=== PATIENT | female | born 2000 | race Two or more races ===

== ENCOUNTER 2020-12-12 15:32 | Inpatient (IN) | payer MEDICAID ==
[2020-12-12] MEDS ORDERED: Sodium Chloride 0.9% 10 ML Syringe FLUSH PRN ×2 (15:42→15:46)
[2020-12-12] MEDS ORDERED: Nalbuphine 10 MG/1 ML Vial IVPUSH PRN (15:42)
[2020-12-12] MEDS ORDERED: Misoprostol 25 MCG (1/4 of 100 MCG) Tab VAG PRN (15:46)
--- NOTE | 2020-12-12 21:24 | PCM.LDHP ---
L&D History of Present Illness - General Date of Service: 12/12/20 Admit Problem/Dx: Patient Status Order with Admit Dx/Problem 12/12/20 15:42 Patient Status [ADT] Routine Admission Diagnosis/Problem Admission Diagnosis/Problem 40 weeks gestation of Source of Information: Patient History Limitations: Reports: No Limitations - History of Present Illness Introduction:: Bre Hartman is a 20-year-old female at 40 weeks 0 days (YOLY 12/12/2020) by LMP consistent with a first trimester ultrasound who presents after being seen in the clinic earlier today. While in the clinic she had a nonreactive NST due to tachycardia with a baseline in the 165s. The remainder of the NST was normal with moderate variability, positive 15 x 15 accelerations and no decelerations. She was having contractions about every 7-8 minutes. She was having good movement. She denied any leaking of fluid or vaginal bleedi ng. Patient was sent to L&D for induction due to the non-reactive NST. Associated Symptoms: Denies: vaginal bleeding, vaginal discharge, vaginal fluid Present Illness Comments:: Bre Hartman is a 20-year-old female at 40 weeks 0 days (YOLY 12/12/2020) by LMP consistent with a first trimester ultrasound who presents for induction of labor in the setting of non-reactive NST in the office today with tachycardia. She has had routine care initially staring in [place] and transferring to care with myself, Dr. Craven, at 31 WGA. She received TdaP vaccine on 09/22/2020. Her was overall uncomplicated. She is rubella equivocal and should be offered MMR vaccine after delivery. 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 : Current labs Blood type: O+ Antibody screen: Negative Rubella status: Equivocal Hepatitis B surface antigen: Negative Hepatis C: Negative RPR: Negative HIV: Negative Gonorrhea: Negative Chlamydia: Negative Two hour glucose tolerance test: Negative on 09/22/2020 GBS status: Negative on 11/16/2020 - Related Data Allergies/Adverse Reactions: Allergies Allergy/AdvReac Type Severity Reaction Status Date / Time No Known Allergies Allergy Verified 12/12/20 15:50 Home Medications: Home Meds Iron,Carbonyl/Ascorbic Acid [Iron 100-Vitamin C Tablet] 1 each PO DAILY 12/12/20 [History] Pnv No.95/Ferrous Fum/Folic AC [ Vitamin Tablet] 1 each PO DAILY 12/12/20 [History] Past Medical History - Past Health History Medical/Surgical History: Denies Medical/Surgical History HEENT History: Reports: Other (See Below) Other HEENT History: glasses and contacts [employer]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: : 1 Para: 0 - Past Surgical History GI Surgical History: Reports: None Female Surgical History: Reports: None Social & Family History - Family History Family Medical History: No Pertinent Family History - Tobacco Use Tobacco Use Status *Q: Never Tobacco User Second Hand Smoke Exposure: No - Tobacco Core Measures Tobacco Use/Smoking Within Last 30 Days: No Smokeless Tobacco Use in Last 30 Days: No - Alcohol Use Alcohol Use History: No - Recreational Drug Use Recreational Drug Use: Yes Drug Use in Last 12 Months: Yes Recreational Drug Type: Reports: Marijuana/Hashish Recreational Drug Use Frequency: Not Used In Over 6 Months - Living Situation & Occupation Living situation: Reports: Single Occupation: Employed H&P Review of Systems - Review of Systems: Review Of Systems: See Below General: Denies: Fever, Chills, Malaise, Weakness, Fatigue HEENT: Reports: Contact Lenses, Glasses. Denies: Headaches, Post Nasal Drip, Sinus Congestion, Sore Throat, Visual Changes Pulmonary: Denies: Shortness of Breath, Wheezing, Cough Cardiovascular: Denies: Chest Pain, Palpitations, Dyspnea on Exertion Gastrointestinal: Denies: Abdominal Pain, Constipation, Diarrhea, Nausea, Vomiti ng Genitourinary: Denies: Dysuria, Frequency, Burning, Pain, Urgency Musculoskeletal: Reports: Back Pain (and hip pain of ) Skin: Denies: Rash, Lesions Psychiatric: Denies: Depression, Anxiety Neurological: Denies: Headache, Numbness, Syncope L&D Exam - Exam Exam: See Below - Vital Signs Vital Signs: Last Vital Signs Temp 36.9 C 12/12/20 15:42 Pulse 98 12/12/20 15:42 Resp 16 12/12/20 15:42 BP 121/88 12/12/20 15:42 Pulse Ox 98 12/12/20 15:42 Weight: 72.575 kg - OB Specific Fundal Height In cm: 40 Contraction Duration (sec): 60-120 Contraction Frequency (min): 4-7 Contraction Intensity: Mild Movement: Active Heart Tones: Present Heart Tones per Min: 150 (positive 15 x 15 accelerations, no de celerations) Heart Rate (FHR) Variability: Moderate (6-25 bmp) Presentation: Vertex Estimated Weight: 7.5-8 lbs by [place] - Mckenzie Score Mckenzie Score Cervix Position: Anterior Mckenzie Score Consistency: Medium Mckenzie Score Effacement: 51-70% (70%) Mckenzie Score Dilation: 1-2 cm Mckenzie Score 's Station: -3 Mckenzie Score Total: 6 - Exam General: Alert, Oriented HEENT: Conjunctiva Clear, EOMI Neck: Supple, Trachea Midline Lungs: Clear to Auscultation, Normal Respiratory Effort Cardiovascular: Regular Rate, Regular Rhythm GI/Abdominal Exam: Soft, Non-Tender, No Distention, Other (Gravid). No: Guarding, Rigid, Rebound Genitourinary: Normal external exam Extremities: Normal Inspection, Non-Tender, No Pedal Edema Skin: Warm, Dry, Intact Psychiatric: Normal Affect, Normal Mood - Patient Data Lab Results Last 24 hrs: Laboratory Results - last 24 hr 12/12/20 12/12/20 12/12/20 Range/Units 15:45 16:08 16:08 WBC 8.15 (3.98-10.04) K/mm3 RBC 4.17 (3.98-5.22) M/mm3 Hgb 11.6 (11.2-15.7) gm/dl Hct 35.7 (34.1-44.9) % MCV 85.6 (79.4-94.8) fl MCH 27.8 (25.6-32.2) pg MCHC 32.5 (32.2-35.5) g/dl RDW Std Deviation 47.7 H (36.4-46.3) fL Plt Count 252 (182-369) K/mm3 MPV 10.7 (9.4-12.3) fl Neut % (Auto) 70.9 (34.0-71.1) % Lymph % (Auto) 19.8 (19.3-51.7) % Lewis % (Auto) 5.4 (4.7-12.5) % Eos % (Auto) 3.3 (0.7-5.8) Baso % (Auto) 0.2 (0.1-1.2) % Neut # (Auto) 5.78 (1.56-6.13) K/mm3 Lymph # (Auto) 1.61 (1.18-3.74) K/mm3 Lewis # (Auto) 0.44 H (0.24-0.36) K/mm3 Eos # (Auto) 0.27 (0.04-0.36) K/mm3 Baso # (Auto) 0.02 (0.01-0.08) K/mm3 Urine Opiates Screen (HNKPXE=185) Ur Buprenorphine Scrn (CUTOFF=10) Ur Oxycodone Screen (ARA5GV=188) Urine Methadone Screen (YFGUUZ=621) Ur Propoxyphene Screen (PVYYPJ=435) Ur Barbiturates Screen (CTGCLI=604) Ur Tricyclics Screen (QTUBLK=493) Ur Phencyclidine Scrn (CUTOFF=25) Ur Amphetamine Screen (NCEFSB=063) U Methamphetamines Scrn (EJTBQQ=196) U Benzodiazepines Scrn (WOSMZA=258) U Cocaine Metab Screen (HLRVXV=710) U Marijuana (THC) Screen (CUTOFF=50) SARS-CoV-2 RNA (ЕЛЕНА) Negative (NEGATIVE) Blood Type O POSITIVE Gel Antibody Screen Negative 12/12/20 Range/Units 16:50 WBC (3.98-10.04) K/mm3 RBC (3.98-5.22) M/mm3 Hgb (11.2-15.7) gm/dl Hct (34.1-44.9) % MCV (79.4-94.8) fl MCH (25.6-32.2) pg MCHC (32.2-35.5) g/dl RDW Std Deviation (36.4-46.3) fL Plt Count (182-369) K/mm3 MPV (9.4-12.3) fl Neut % (Auto) (34.0-71.1) % Lymph % (Auto) (19.3-51.7) % Lewis % (Auto) (4.7-12.5) % Eos % (Auto) (0.7-5.8) Baso % (Auto) (0.1-1.2) % Neut # (Auto) (1.56-6.13) K/mm3 Lymph # (Auto) (1.18-3.74) K/mm3 Lewis # (Auto) (0.24-0.36) K/mm3 Eos # (Auto) (0.04-0.36) K/mm3 Baso # (Auto) (0.01-0.08) K/mm3 Urine Opiates Screen Negative (XOSLYN=147) Ur Buprenorphine Scrn Negative (CUTOFF=10) Ur Oxycodone Screen Negative (UTP7CW=403) Urine Methadone Screen Negative (MALPNP=059) Ur Propoxyphene Screen Negative (DVZULP=548) Ur Barbiturates Screen Negative (SUXRAP=143) Ur Tricyclics Screen Negative (FCRCAP=739) Ur Phencyclidine Scrn Negative (CUTOFF=25) Ur Amphetamine Screen Negative (FJJPDJ=349) U Methamphetamines Scrn Negative (FSFRCB=062) U Benzodiazepines Scrn Negative (MZACTZ=682) U Cocaine Metab Screen Negative (VEYTCC=493) U Marijuana (THC) Screen Negative (CUTOFF=50) SARS-CoV-2 RNA (ЕЛЕНА) (NEGATIVE) Blood Type Gel Antibody Screen Result Diagrams: 12/12/20 16:08 - Problem List (1) 40 weeks gestation of SNOMED Code(s): 34241382 ICD Code: Z3A.40 - 40 WEEKS GESTATION OF Status: Acute Current Visit: Yes (2) Rubella non-immune status, antepartum SNOMED Code(s): 141512419 ICD Code: O99.891 - OTH DISEASES AND CONDITIONS COMPLICATING ; Z28.3 - UNDERIMMUNIZATION STATUS Status: Acute Current Visit: Yes (3) Non-reactive NST (non-stress test) SNOMED Code(s): 540588016, 094238968 ICD Code: O28.8 - OTHER ABNORMAL FINDINGS ON SCREENING OF MOTHER Status: Acute Current Visit: Yes Problem List Initiated/Reviewed/Updated: Yes Orders Last 24hrs: Active Orders 24 hr Category Date Time Status Patient Status [ADT] Routine ADT 12/12/20 15:42 Active Activity as Tolerated [RC] PFP Care 12/12/20 15:42 Active Communication Order [RC] ASDIRECTED Care 12/12/20 15:42 Active Communication Order [RC] ASDIRECTED Care 12/12/20 15:46 Active Communication Order [RC] ASDIRECTED Care 12/12/20 15:46 Active Communication Order [RC] ASDIRECTED Care 12/12/20 15:46 Active Notify Provider Vital Signs [RC] PRN Care 12/12/20 15:44 Active Notify Provider [RC] ASDIRECTED Care 12/12/20 15:46 Active Notify Provider [RC] PFP Care 12/12/20 15:42 Active Notify Provider [RC] PRN Care 12/12/20 15:42 Active Peripheral IV Care [RC] . DIRECTED Care 12/12/20 15:43 Active Pump Management, Intrathecal [RC] ASDIRECTED Care 12/12/20 15:43 Active Vital Signs [RC] PER UNIT ROUTINE Care 12/12/20 15:42 Active Regular Diet [DIET] Diet 12/12/20 Lunch Active HEP C VIRUS AB [REF] Routine Lab 12/12/20 16:08 Received PATIENT RETYPE [BBK] Routine Lab 12/12/20 16:49 Ordered RAPID PLASMA REAGIN,RPR [CHEM] Routine Lab 12/12/20 16:08 Received Lactated Ringers [Ringers, Lactated] 1,000 ml Med 12/12/20 15:45 Active IV ASDIRECTED Nalbuphine [Nubain] Med 12/12/20 15:42 Active 10 mg IVPUSH Q2H PRN Sodium Chloride 0.9% [Saline Flush] Med 12/12/20 15:42 Active 10 ml FLUSH ASDIRECTED PRN miSOPROStoL [Cytotec] Med 12/12/20 15:46 Active 25 mcg VAG Q4H PRN Electronic Heart Tones Ext w TOCO [WOMSER] Oth 12/12/20 15:42 Ordered Routine Electronic Heart Tones Internal [WOMSER] Per Unit Oth 12/12/20 15:42 Ordered Routine Medication Administration Instruction [OM.PC] Oth 12/12/20 16:00 Ordered ASDIRECTED Peripheral IV Insertion Adult [OM.PC] Routine Oth 12/12/20 15:42 Ordered Peripheral IV Insertion Adult [OM.PC] Routine Oth 12/12/20 15:46 Ordered Resuscitation Status Routine Resus Stat 12/12/20 15:42 Ordered Medication Orders Lactated Ringer's (Ringers, Lactated) 1,000 mls @ 100 mls/hr IV ASDIRECTED LUCINA Misoprostol (Misoprostol 25 Mcg (1/4 Of 100 Mcg) Tab) 25 mcg VAG Q4H PRN PRN Reason: cervical ripening Last Admin: 12/12/20 17:02 Dose: 25 mcg Documented by: QAMAR Nalbuphine HCl (Nalbuphine 10 Mg/1 Ml Vial) 10 mg IVPUSH Q2H PRN PRN Reason: Pain Sodium Chloride (Sodium Chloride 0.9% 10 Ml Syringe) 10 ml FLUSH ASDIRECTED PRN PRN Reason: Keep Vein Open Assessment/Plan Comment:: Bre Hartman is a 20-year-old female at 40 weeks 0 days (YOLY 12/12/2020) who is undergoing induction of labor in the setting of non-reactive NST with tachycardia complicated by rubella non-immune status Patient was placed in dorsal lithotomy position with feet in stirrups. A speculum was placed in the vagina and the cervix was visualized. It appeared to be 1 cm dilated. A 16 Citizen [place] pérez catheter was advanced through the cervix using a ring forceps without difficulty. The pérez bulb was filled with 60 mL of sterile saline. Mother and tolerated procedure without difficulty. Cytotec 25 mcg was placed in the vagina after placement of the Pérez catheter. Refer to observation for induction of labor in the setting of non-reactive NST Start induction of labor with Cytotec 25 mcg vaginally now and every 4 hours Continuous monitoring due to tachycardia on NST Place IV and have Lactated Ringer's at 125 ml/hr if not tolerating regular diet May have regular diet while on Cytotec induction Activity as tolerated May have epidural as desired Plans to breast-feed after delivery Anticipate vaginal delivery unless otherwise indicated Javy Craven MD 9:54 PM 12/12/2020
[2020-12-12] MEDS ORDERED: Oxytocin/Lactated Ringers 10 UNIT/1,000 ML BAG IV SCH (21:45)
[2020-12-12] MEDS: Lactated Ringers 1,000 ML IV SCH (22:03)
--- NOTE | 2020-12-12 23:42 | PCM.PNLD ---
Labor Progress Note - VS & Meds Vital Signs: Last Vital Signs Temp 36.9 C 12/12/20 15:42 Pulse 98 12/12/20 15:42 Resp 16 12/12/20 15:42 BP 121/88 12/12/20 15:42 Pulse Ox 98 12/12/20 15:42 Active Medications: Current Medications Lactated Ringer's (Ringers, Lactated) 1,000 mls @ 100 mls/hr IV ASDIRECTED LUCINA Last Admin: 12/12/20 22:03 Dose: 100 mls/hr Documented by: Oxytocin/Lactated Ringer's (Pitocin In Lr 10 Units/1,000 Ml) 10 unit in 1,000 mls @ 12 mls/hr IV TITRATE LUCINA; Protocol Last Titration: 12/12/20 22:34 Dose: 4 munits/min, 24 mls/hr Documented by: Misoprostol (Misoprostol 25 Mcg (1/4 Of 100 Mcg) Tab) 25 mcg VAG Q4H PRN PRN Reason: cervical ripening Last Admin: 12/12/20 17:02 Dose: 25 mcg Documented by: Nalbuphine HCl (Nalbuphine 10 Mg/1 Ml Vial) 10 mg IVPUSH Q2H PRN PRN Reason: Pain Sodium Chloride (Sodium Chloride 0.9% 10 Ml Syringe) 10 ml FLUSH ASDIRECTED PRN PRN Reason: Keep Vein Open - Uterine Contractions Uterine Monitoring Mode: External [place] Contraction Frequency (min): 1-2 Contraction Duration (sec): 45-60 Contraction Intensity: Mild to Moderate Uterine Resting Tone: Soft - Monitoring Monitor Mode: Doppler/Auscultation Heart Rate (FHR) Baseline: 160 Heart Rate (FHR) Variability: Moderate (6-25 bmp) Accelerations: Present, 15x15 Decelerations: None Strip Review: Category II - Vaginal Exam Dilation (cm): 4-5 Effacement (Percent): 70 Station: -3 Cervical Position: Midposition Sterile Vaginal Exam Performed By: Javy Craven Vaginal Exam Comment: Artificial rupture of membranes performed with [place] with return of small amount of clear fluid. Mother and infant tolerated procedure without difficulty. - Labor Progress (Free Text) Labor Progress: Bre Hartman is a 20-year-old G1, P0 at 40 weeks 1 day undergoing induction of labor due to nonreactive NST in the office Artificial rupture membranes performed with return of small amount of clear fl uid. Patient currently on Pitocin for augmentation of labor patient making progress with cervical dilation at 4 to 5 cm at this time continue with induction of labor with Pitocin routine vitals patient may have epidural as desired Category 2 heart rate tracing with baseline of 160s. Monitoring is otherwise looking normal at this time. Continue to monitor closely for any signs of distress. Anticipate vaginal delivery unless otherwise indicated Javy Craven MD 11:42 PM 12/12/2020
[2020-12-13] MEDS: Lactated Ringers 1,000 ML IV SCH ×4 (00:21→08:08)
[2020-12-13] MEDS ORDERED: ePHEDrine 50 MG/ML SDV IVPUSH PRN ×2 (04:14→17:00)
[2020-12-13] MEDS ORDERED: diphenhydrAMINE 50 MG/ML SDV IVPUSH PRN ×3 (04:14→17:00)
[2020-12-13] MEDS: fentaNYL 100 MCG/2 ML SDV EPIDUR PRN ×2 (04:44→12:57)
[2020-12-13] MEDS: Bupivacaine/fentaNYL/NS 100 ML Bag EPIDUR PRN ×2 (04:44→12:56)
--- NOTE | 2020-12-13 05:26 | PCM.PREANE ---
Preanesthetic Assessment - Procedure Proposed Procedure: epidural - Anesthesia/Transfusion/Family Hx Anesthesia History: No Prior Anesthesia Family History of Anesthesia Reaction: No Transfusion History: No Prior Transfusion(s) - Review of Systems General: Fatigue Pulmonary: No Symptoms Cardiovascular: No Symptoms Gastrointestinal: Abdominal Pain (labor) Neurological: No Symptoms Other: Reports: None - Physical Assessment Vital Signs: Last Vital Signs Temp 36.9 C 12/12/20 15:42 Pulse 98 12/12/20 15:42 Resp 16 12/12/20 15:42 BP 121/88 12/12/20 15:42 Pulse Ox 98 12/12/20 15:42 Height: 1.57 m Weight: 72.575 kg ASA Class: 2 Mental Status: Alert & Oriented x3 Airway Class: Mallampati = 2 Dentition: Reports: Normal Dentition Thyro-Mental Finger Breadths: 2 Mouth Opening Finger Breadths: 2 ROM/Head Extension: Full Lungs: Clear to Auscultation, Normal Respiratory Effort Cardiovascular: Regular Rate, Regular Rhythm - Lab Values: Laboratory Last Values WBC 8.15 K/mm3 (3.98-10.04) 12/12/20 16:08 RBC 4.17 M/mm3 (3.98-5.22) 12/12/20 16:08 Hgb 11.6 gm/dl (11.2-15.7) 12/12/20 16:08 Hct 35.7 % (34.1-44.9) 12/12/20 16:08 MCV 85.6 fl (79.4-94.8) 12/12/20 16:08 MCH 27.8 pg (25.6-32.2) 12/12/20 16:08 MCHC 32.5 g/dl (32.2-35.5) 12/12/20 16:08 RDW Std Deviation 47.7 fL (36.4-46.3) H 12/12/20 16:08 Plt Count 252 K/mm3 (182-369) 12/12/20 16:08 MPV 10.7 fl (9.4-12.3) 12/12/20 16:08 Neut % (Auto) 70.9 % (34.0-71.1) 12/12/20 16:08 Lymph % (Auto) 19.8 % (19.3-51.7) 12/12/20 16:08 [place] % (Auto) 5.4 % (4.7-12.5) 12/12/20 16:08 Eos % (Auto) 3.3 (0.7-5.8) 12/12/20 16:08 Baso % (Auto) 0.2 % (0.1-1.2) 12/12/20 16:08 Neut # (Auto) 5.78 K/mm3 (1.56-6.13) 12/12/20 16:08 Lymph # (Auto) 1.61 K/mm3 (1.18-3.74) 12/12/20 16:08 [place] # (Auto) 0.44 K/mm3 (0.24-0.36) H 12/12/20 16:08 Eos # (Auto) 0.27 K/mm3 (0.04-0.36) 12/12/20 16:08 Baso # (Auto) 0.02 K/mm3 (0.01-0.08) 12/12/20 16:08 Urine Opiates Screen Negative (ZIUFWO=665) 12/12/20 16:50 Ur Buprenorphine Scrn Negative (CUTOFF=10) 12/12/20 16:50 Ur Oxycodone Screen Negative (AGF6EB=690) 12/12/20 16:50 Urine Methadone Screen Negative (LCXCIQ=944) 12/12/20 16:50 Ur Propoxyphene Screen Negative (GQCBWT=227) 12/12/20 16:50 Ur Barbiturates Screen Negative (OSCMAF=953) 12/12/20 16:50 Ur Tricyclics Screen Negative (ZFRJRJ=985) 12/12/20 16:50 Ur Phencyclidine Scrn Negative (CUTOFF=25) 12/12/20 16:50 Ur Amphetamine Screen Negative (PARYEG=252) 12/12/20 16:50 U Methamphetamines Scrn Negative (ZGNOWC=254) 12/12/20 16:50 U Benzodiazepines Scrn Negative (LPJTAL=968) 12/12/20 16:50 U Cocaine Metab Screen Negative (THWEIF=524) 12/12/20 16:50 U Marijuana (THC) Screen Negative (CUTOFF=50) 12/12/20 16:50 RPR Non-reactive (NONREACTIVE) 12/12/20 16:08 SARS-CoV-2 RNA (ЕЛЕНА) Negative (NEGATIVE) 12/12/20 15:45 Blood Type O POSITIVE 12/12/20 16:08 Gel Antibody Screen Negative 12/12/20 16:08 - Allergies Allergies/Adverse Reactions: Allergies Allergy/AdvReac Type Severity Reaction Status Date / Time No Known Allergies Allergy Verified 12/12/20 15:50 - Anesthesia Plan Pre-Op Medication Ordered: None - Acknowledgements Anesthesia Type Planned: Epidural Pt an Appropriate Candidate for the Planned Anesthesia: Yes Alternatives and Risks of Anesthesia Discussed w Pt/Guardian: Yes Pt/Guardian Understands and Agrees with Anesthesia Plan: Yes PreAnesthesia Questionnaire - Past Health History Medical/Surgical History: Denies Medical/Surgical History HEENT History: Reports: Other (See Below) Other HEENT History: glasses and contacts 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: Reports: GERD 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: - Past Surgical History GI Surgical History: Reports: None Female Surgical History: Reports: None - SUBSTANCE USE Tobacco Use Status *Q: Never Tobacco User Tobacco Use Within Last Twelve Months: No Second Hand Smoke Exposure: No Recreational Drug Use History: Yes Recreational Drug Type: Reports: Marijuana/Hashish - HOME MEDS Home Medications: Home Meds Iron,Carbonyl/Ascorbic Acid [Iron 100-Vitamin C Tablet] 1 each PO DAILY 12/12/20 [History] Pnv No.95/Ferrous Fum/Folic AC [ Vitamin Tablet] 1 each PO DAILY 12/12/20 [History] - CURRENT (IN HOUSE) MEDS Current Meds: Current Medications Diphenhydramine HCl (Diphenhydramine 50 Mg/Ml Sdv) 25 mg IVPUSH Q6H PRN PRN Reason: pruritis Ephedrine Sulfate (Ephedrine 50 Mg/Ml Sdv) 5 mg IVPUSH ASDIRECTED PRN PRN Reason: Hypotension Fentanyl (Fentanyl 100 Mcg/2 Ml Sdv) 100 mcg EPIDUR Q3H PRN PRN Reason: Pain Last Admin: 12/13/20 04:44 Dose: 100 mcg Documented by: Fentanyl/Bupivacaine HCl (Bupivacaine/Fentanyl/Ns 100 Ml Bag) 100 ml EPIDUR DIRECTED PRN PRN Reason: Pain Last Admin: 12/13/20 04:44 Dose: 100 ml Documented by: Lactated Ringer's (Ringers, Lactated) 1,000 mls @ 100 mls/hr IV ASDIRECTED LUCINA Last Admin: 12/13/20 04:43 Dose: 100 mls/hr Documented by: Oxytocin/Lactated Ringer's (Pitocin In Lr 10 Units/1,000 Ml) 10 unit in 1,000 mls @ 12 mls/hr IV TITRATE LUCINA; Protocol Last Titration: 12/13/20 01:18 Dose: 3 munits/min, 18 mls/hr Documented by: Misoprostol (Misoprostol 25 Mcg (1/4 Of 100 Mcg) Tab) 25 mcg VAG Q4H PRN PRN Reason: cervical ripening Last Admin: 12/12/20 17:02 Dose: 25 mcg Documented by: Nalbuphine HCl (Nalbuphine 10 Mg/1 Ml Vial) 10 mg IVPUSH Q2H PRN PRN Reason: Pain Last Admin: 12/13/20 04:17 Dose: 10 mg Documented by: Sodium Chloride (Sodium Chloride 0.9% 10 Ml Syringe) 10 ml FLUSH ASDIRECTED PRN PRN Reason: Keep Vein Open
--- NOTE | 2020-12-13 07:59 | PCM.PNLD ---
Labor Progress Note - VS & Meds Vital Signs: Last Vital Signs Temp 36.9 C 12/12/20 15:42 Pulse 98 12/12/20 15:42 Resp 16 12/12/20 15:42 BP 121/88 12/12/20 15:42 Pulse Ox 98 12/12/20 15:42 Active Medications: Current Medications Diphenhydramine HCl (Diphenhydramine 50 Mg/Ml Sdv) 25 mg IVPUSH Q6H PRN PRN Reason: pruritis Ephedrine Sulfate (Ephedrine 50 Mg/Ml Sdv) 5 mg IVPUSH ASDIRECTED PRN PRN Reason: Hypotension Fentanyl (Fentanyl 100 Mcg/2 Ml Sdv) 100 mcg EPIDUR Q3H PRN PRN Reason: Pain Last Admin: 12/13/20 04:44 Dose: 100 mcg Documented by: Fentanyl/Bupivacaine HCl (Bupivacaine/Fentanyl/Ns 100 Ml Bag) 100 ml EPIDUR ASDIRECTED PRN PRN Reason: Pain Last Admin: 12/13/20 04:44 Dose: 100 ml Documented by: Lactated Ringer's (Ringers, Lactated) 1,000 mls @ 100 mls/hr IV ASDIRECTED LUCINA Last Admin: 12/13/20 05:41 Dose: 100 mls/hr Documented by: Oxytocin/Lactated Ringer's (Pitocin In Lr 10 Units/1,000 Ml) 10 unit in 1,000 mls @ 12 mls/hr IV TITRATE LUCINA; Protocol Last Titration: 12/13/20 06:30 Dose: 6 munits/min, 36 mls/hr Documented by: Misoprostol (Misoprostol 25 Mcg (1/4 Of 100 Mcg) Tab) 25 mcg VAG Q4H PRN PRN Reason: cervical ripening Last Admin: 12/12/20 17:02 Dose: 25 mcg Documented by: Nalbuphine HCl (Nalbuphine 10 Mg/1 Ml Vial) 10 mg IVPUSH Q2H PRN PRN Reason: Pain Last Admin: 12/13/20 04:17 Dose: 10 mg Documented by: Sodium Chloride (Sodium Chloride 0.9% 10 Ml Syringe) 10 ml FLUSH ASDIRECTED PRN PRN Reason: Keep Vein Open - Uterine Contractions Uterine Monitoring Mode: IUPC Contraction Frequency (min): 1-2 Contraction Duration (sec): 45-60 Contraction Intensity: Mild to Moderate Uterine Resting Tone: Soft - Monitoring Monitor Mode: Doppler/Auscultation Heart Rate (FHR) Baseline: 160 Heart Rate (FHR) Variability: Moderate (6-25 bmp) Accelerations: Present, 15x15 Decelerations: None Strip Review: Category II - Vaginal Exam Dilation (cm): 6 Effacement (Percent): 70 Station: -3 Cervical Position: Midposition Sterile Vaginal Exam Performed By: Javy Craven Vaginal Exam Comment: IUPC placed without difficulty. Cervix unchanged from prior. - Labor Progress (Free Text) Labor Progress: Has been 6 cm since 2 am. No change again this morning. Epidural in place. Will monitor closely now with IUPC. If no progress despite adequate contractions w ould consider .
[2020-12-13] MEDS ORDERED: Oxytocin/Lactated Ringers 20 UNIT/1,000 ML BAG IV SCH (12:30)
--- NOTE | 2020-12-13 13:31 | PCM.PNLD ---
Labor Progress Note - VS & Meds Vital Signs: Last Vital Signs Temp 36.9 C 12/12/20 15:42 Pulse 98 12/12/20 15:42 Resp 16 12/12/20 15:42 BP 121/88 12/12/20 15:42 Pulse Ox 98 12/12/20 15:42 Active Medications: Current Medications Diphenhydramine HCl (Diphenhydramine 50 Mg/Ml Sdv) 25 mg IVPUSH Q6H PRN PRN Reason: pruritis Ephedrine Sulfate (Ephedrine 50 Mg/Ml Sdv) 5 mg IVPUSH ASDIRECTED PRN PRN Reason: Hypotension Fentanyl (Fentanyl 100 Mcg/2 Ml Sdv) 100 mcg EPIDUR Q3H PRN PRN Reason: Pain Last Admin: 12/13/20 12:57 Dose: 100 mcg Documented by: Fentanyl/Bupivacaine HCl (Bupivacaine/Fentanyl/Ns 100 Ml Bag) 100 ml EPIDUR ASDIRECTED PRN PRN Reason: Pain Last Admin: 12/13/20 12:56 Dose: 100 ml Documented by: Lactated Ringer's (Ringers, Lactated) 1,000 mls @ 100 mls/hr IV ASDIRECTED LUCINA Last Admin: 12/13/20 08:08 Dose: 100 mls/hr Documented by: Oxytocin/Lactated Ringer's (Pitocin In Lr 10 Units/1,000 Ml) 10 unit in 1,000 mls @ 12 mls/hr IV TITRATE LUCINA; Protocol Last Titration: 12/13/20 11:01 Dose: 20 munits/min, 120 mls/hr Documented by: Oxytocin/Lactated Ringer's (Pitocin In Lr 20 Units/1,000 Ml) 20 unit in 1,000 mls @ 60 mls/hr IV TITRATE LUCINA; Protocol Misoprostol (Misoprostol 25 Mcg (1/4 Of 100 Mcg) Tab) 25 mcg VAG Q4H PRN PRN Reason: cervical ripening Last Admin: 12/12/20 17:02 Dose: 25 mcg Documented by: Nalbuphine HCl (Nalbuphine 10 Mg/1 Ml Vial) 10 mg IVPUSH Q2H PRN PRN Reason: Pain Last Admin: 12/13/20 04:17 Dose: 10 mg Documented by: Sodium Chloride (Sodium Chloride 0.9% 10 Ml Syringe) 10 ml FLUSH ASDIRECTED PRN PRN Reason: Keep Vein Open - Uterine Contractions Uterine Monitoring Mode: IUPC Contraction Frequency (min): 1-2 Contraction Duration (sec): 45-60 Contraction Intensity: Mild to Moderate Uterine Resting Tone: Soft - Monitoring Monitor Mode: Doppler/Auscultation Heart Rate (FHR) Baseline: 160 Heart Rate (FHR) Variability: Moderate (6-25 bmp) Accelerations: Present, 15x15 Decelerations: None Strip Review: Category II - Vaginal Exam Dilation (cm): 7.5 Effacement (Percent): 80 Station: -3 Cervical Position: Midposition Sterile Vaginal Exam Performed By: Farida Klein Vaginal Exam Comment: IUPC placed without difficulty. Cervix unchanged from prior. - Labor Progress (Free Text) Labor Progress: Term induction. IUPC placed. Progressing slowly. If unchanged at next check again consider section.
[2020-12-13] MEDS ORDERED: Azithromycin 500 MG in Sodium Chloride 0.9% 250 ML IV ONE (14:02)
[2020-12-13] MEDS ORDERED: Sodium Chloride 0.9% 10 ML Syringe FLUSH PRN (14:10)
[2020-12-13] MEDS ORDERED: Metoclopramide 10 MG/2 ML SDV IVPUSH ONE (14:10)
[2020-12-13] MEDS ORDERED: ceFAZolin 2 GM in Premix Bag 1 BAG IV ONE (14:10)
[2020-12-13] MEDS ORDERED: Citric Acid/Sodium Citrate Solution 30 ML Cup PO ONE (14:10)
[2020-12-13] MEDS ORDERED: Lactated Ringers 1,000 ML IV SCH (14:15)
[2020-12-13] MEDS ORDERED: Metoclopramide 10 MG/2 ML SDV ONE (14:19)
[2020-12-13] MEDS ORDERED: Citric Acid/Sodium Citrate Solution 30 ML Cup ONE (14:19)
[2020-12-13] MEDS ORDERED: Bupivacaine 0.5% 30 ML SDV ONE (14:41)
[2020-12-13] MEDS ORDERED: Methylergonovine 0.2 MG/1 ML Amp ONE (14:52)
[2020-12-13] MEDS ORDERED: Carboprost Tromethamine 250 MCG/1 ML Amp ONE (14:52)
[2020-12-13] MEDS ORDERED: Midazolam 1 MG/ML 2 ML SDV ONE (14:59)
[2020-12-13] MEDS ORDERED: Misoprostol 200 MCG Tab ONE (15:00)
[2020-12-13] MEDS ORDERED: ceFAZolin 1 GM Vial ONE ×2 (15:06→15:12)
[2020-12-13] MEDS ORDERED: Oxytocin 10 Units/1 ML SDV ONE (15:12)
[2020-12-13] MEDS ORDERED: Lactated Ringers 2,000 ML ONE (15:12)
[2020-12-13] MEDS ORDERED: fentaNYL 100 MCG/2 ML SDV ONE (15:12)
[2020-12-13] MEDS ORDERED: Morphine PF 10 MG/10 ML SDV ONE (15:12)
[2020-12-13] MEDS ORDERED: Ondansetron 4 MG/2 ML SDV ONE (15:12)
[2020-12-13] MEDS ORDERED: Sodium Bicarbonate 8.4% 50 MEQ/50 ML SDV ONE (15:12)
[2020-12-13] MEDS ORDERED: Lidocaine 2% with EPINEPHrine 1:200,000 20 ML SDV ONE (15:12)
[2020-12-13] MEDS ORDERED: Lactated Ringers 1,000 ML ONE (15:18)
[2020-12-13] MEDS ORDERED: fentaNYL 100 MCG/2 ML SDV IVPUSH PRN (16:06)
[2020-12-13] MEDS ORDERED: Ondansetron 4 MG/2 ML SDV IVPUSH PRN (16:06)
[2020-12-13] MEDS ORDERED: Meperidine 50 MG/ML Vial IVPUSH ONE (16:07)
--- NOTE | 2020-12-13 16:10 | PCM.POSTAN ---
POST ANESTHESIA ASSESSMENT - MENTAL STATUS Mental Status: Alert, Oriented - VITAL SIGNS Vital Signs: Last Vital Signs Temp 36.9 C 12/12/20 15:42 Pulse 98 12/12/20 15:42 Resp 16 12/12/20 15:42 BP 121/88 12/12/20 15:42 Pulse Ox 98 12/12/20 15:42 1528 138/74 121 18 99% 98.9F - RESPIRATORY Respiratory Status: Respiratory Rate WNL, Airway Patent, O2 Saturation Stable - CARDIOVASCULAR CV Status: Blood Pressure Stable, Elevated Pulse Rate - GASTROINTESTINAL GI Status: No Symptoms - PAIN Pain Score: 0 - POST OP HYDRATION Hydration Status: Hypovolemic (IV LR 1,000 bolus infusing. )
--- NOTE | 2020-12-13 16:12 | PCM.OPNOTE ---
- General Post-Op/Procedure Note Date of Surgery/Procedure: 12/13/20 Operative Procedure(s): primary section Findings: very prominent sacrum, viable male, 9#9oz, 1/7 APGARS at 1444. Pre Op Diagnosis: failure to progress Post-Op Diagnosis: Same Anesthesia Technique: Epidural Primary Surgeon: Farida Klein Anesthesia Provider: Jacquie Armas Skip Miner Blasting: Yolette Olivarez Fluid Replacement, Intraop: 2,000 Output, Urine Amount: 200 EBL in mLs: 1,200 Complications: None Condition: Good Free Text/Narrative:: The patient was taken to the operating room where epidural anesthesia was dosed to surgical levels without difficulty. The patient was prepped and draped in the usual sterile fashion in the dorsal supine position with a leftward tilt. A Pfannenstiel skin incision was made with the scalpel and carried through to the underlying layer of fascia. The fascia was incised in the midline and extended laterally using Maldonado scissors. Kiah clamps were used to elevate the superior aspect of the fascial incision, which was elevated, and the underlying rectus muscles were dissected off bluntly and using Maldonado scissors. Attention was then turned to the inferior aspect of the fascial incision, which in similar fashion was grasped with Kiah clamps, elevated, and the underlying rectus muscles were dissected off bluntly and using the maldonado. The rectus muscles were dissected in the midline. The peritoneum was entered bluntly; this incision was extended superiorly and inferiorly with good visualization of the bladder. The bladder blade was inserted. The vesicouterine peritoneum was identified and entered sharply using Metzenbaum scissors. This incision was extended laterally and the bladder flap was created digitally. The bladder blade was reinserted. The lower uterine segment was incised in a transverse fashion using the scalpel and with digital traction. Clear fluid was noted. The was subsequently delivered by flexing the head to the incision. Body and shoulders followed without difficulty. The cord was clamped and cut. The was subsequently handed to the awaiting keyseating machine set up operator whose presence had been requested.. The placenta was delivered spontaneously intact with a three-vessel cord noted. The uterus was exteriorized and cleared of all clots and debris. It was very boggy. The uterine incision was repaired in 2 layers using 0 monocryl. Hemostasis was visualized. Hemostasis was visualized bilaterally. Significant boggy uterus. Methergine given at 1453, cytotec at 1556, hemabate at 1559, and TXA 1600. The uterus was returned to the abdomen. Attempt to place bakri from below by Dr. Olivarez unsuccessful related to very narrow pelvic arch. The uterine incision was reexamined and it was noted to be hemostatic. The pelvis was copiously irrigated. The fascia was closed with 1 PDS suture, and the skin was closed with 3-0 monocryl. Sponge, lap, and instrument counts were correct x2. The patient was stable at the completion of the proce dure and was subsequently transferred to the recovery room in stable condition.
[2020-12-13] MEDS ORDERED: Tranexamic Acid 1,000 MG in Sodium Chloride 0.9% 100 ML IV ONE (16:15)
[2020-12-13] MEDS ORDERED: Naloxone 0.4 MG/ML SDV IVPUSH PRN (17:00)
[2020-12-13] MEDS ORDERED: diphenhydrAMINE 50 MG/ML SDV IV ONE (17:00)
[2020-12-13] MEDS ORDERED: Sodium Chloride 0.9% 1,000 ML IV SCH (17:00)
[2020-12-13] MEDS ORDERED: Dextrose 5%-Lactated Ringers 1,000 ML IV SCH (17:00)
[2020-12-13] MEDS ORDERED: Bupivacaine 0.25% 10 ML SDV ONE (18:00)
[2020-12-13] MEDS ORDERED: Lidocaine 1.5% with EPINEPHrine 1:200,000 5 ML Amp ONE (18:00)
[2020-12-13] MEDS ORDERED: Sodium Chloride 0.9% 250 ML IV SCH (18:15)
--- NOTE | 2020-12-14 07:43 | PCM48HPAN ---
Post Anesthesia Note - EVALUATION WITHIN 48HRS OF ANESTHETIC Vital Signs in Normal Range: Yes Patient Participated in Evaluation: Yes Respiratory Function Stable: Yes Airway Patent: Yes Cardiovascular Function Stable: Yes Hydration Status Stable: Yes Pain Control Satisfactory: Yes Nausea and Vomiting Control Satisfactory: Yes Mental Status Recovered: Yes Vital Signs: Last Vital Signs Temp 98.5 F 12/14/20 00:45 Pulse 81 12/14/20 02:15 Resp 17 12/14/20 02:15 BP 105/63 12/14/20 02:15 Pulse Ox 95 12/14/20 06:38 - COMMENTS/OBSERVATIONS Free Text/Narrative:: states she is just a little sore.
[2020-12-14] MEDS: Ibuprofen 600 MG Tab PO PRN (08:28)
--- NOTE | 2020-12-14 09:59 | PCM.SN.2 ---
- Free Text/Narrative Note: note: Postoperative day #1 Patient is doing well in the /postop period. Minimal lochia, voiding well, ambulated without problems. Pain is under reasonable control. She has had some ibuprofen for pain. Patient is afebrile, vital signs are stable Lungs are clear with good breath sounds in all lung [place]. Cardiovascular exam shows regular rate and rhythm without murmurs. Abdomen is flat, soft, uterus is below the umbilicus and is firm and nontender. It appears dry. Dressing is removed, Steri-Strips intact. Incision is left open to the air and covered with just a clean washcloth. Legs are nontender. No significant swelling is noted Hemoglobin on postoperative day #1 is 10.3 and platelets are 155,000 Assessment: 1. Post operative/ recovery going well. History of significant bleeding due to uterine atony at the time of delivery. done for failure to progress with nonprogression past 6-7 cm dilation. Plan: 1. Routine postoperative/ care. Patient be discharged home within the next 24-48 hours. Should be able to transfer patient out of the ICU status when bed is available.
[2020-12-14] MEDS: Prenatal Multivitamin with Calcium/Folic Acid/Iron Tab PO SCH (12:38)
[2020-12-14] MEDS ORDERED: Acetaminophen/oxyCODONE 325-5 MG Tab PO PRN (15:58)
[2020-12-14] MEDS: Acetaminophen/oxyCODONE 325-5 MG Tab PO PRN ×2 (16:08→23:13)
[2020-12-14] MEDS: Docusate Sodium 100 MG Cap PO PRN (23:13)
[2020-12-15] MEDS: Acetaminophen/oxyCODONE 325-5 MG Tab PO PRN ×3 (06:39→19:56)
[2020-12-15] MEDS: Docusate Sodium 100 MG Cap PO PRN ×2 (08:02→19:53)
[2020-12-15] MEDS: Ibuprofen 600 MG Tab PO PRN ×2 (08:02→19:53)
[2020-12-15] MEDS: Prenatal Multivitamin with Calcium/Folic Acid/Iron Tab PO SCH (08:02)
--- NOTE | 2020-12-15 12:03 | PCM.SN.2 ---
- Free Text/Narrative Note: Post Operative Progress Note POD #2 Subjective: Doing well overall. Ambulating without difficulty. Lochia minimal. Voiding without difficulty. Passing flatus. Tolerating regular diet without nausea or vomiting. Pain controlled with oral medications. Breast and bottlefeeding with some difficulty with breast-feeding. Mostly bottlefeeding at this time. Objective: Vitals: Vital Signs - 24 hr 12/14/20 12/14/20 12/15/20 16:06 19:48 02:55 Temperature 36.7 C 36.6 C 36.6 C Pulse, 88 91 105 H Peripheral Respiratory 18 15 Rate Blood Pressure 127/82 118/81 115/63 O2 Sat by Pulse 97 95 Oximetry 12/15/20 08:01 Temperature 36.6 C Pulse, 85 Peripheral Respiratory 14 Rate Blood Pressure 127/87 O2 Sat by Pulse 94 L Oximetry Physical Exam General: Alert and oriented, no acute distress Lungs: Clear to auscultation bilaterally Heart: Regular rate and rhythm Abdomen: Soft, minimal appropriate tenderness, non-distended, fundus midline, nontender and at the umbilicus Incision: Clean, dry and intact, no erythema, bleeding or drainage with Steri- Strips in place Extremities: Trace edema in bilateral lower extremities to mid shins, no calf tenderness bilaterally Labs: Laboratory Results - last 24 hr 12/12/20 Range/Units 16:08 Hepatitis C Antibody <0.1 (0.0-0.9) s/co ratio ASSESSMENT: 20-year-old female -0-0-1 s/p primary section POD #2 for arrest of dilation at 6 to 7 cm, complicated by ICU admission in postoperative state for first day after section due to hypotensive episodes with tachycardia and received 2 units PRBCs blood transfusion and rubella nonimmune status and should be offered MMR vaccine prior to discharge PLAN: Doing well Breast and bottlefeeding with some difficulty. Assist as needed Incision healing well. Continue to keep clean and dry. Lochia minimal. Continue to monitor for appropriate lochia. Continue routine post-operative care Plan for MMR vaccine prior to discharge Anticipate discharge home tomorrow as was moved out of level 2 nursery this morning and will be continue to monitored Javy Craven MD 12:02 PM 12/15/2020
[2020-12-16] MEDS: Ibuprofen 600 MG Tab PO PRN (03:55)
[2020-12-16] MEDS: Acetaminophen/oxyCODONE 325-5 MG Tab PO PRN (03:58)
--- NOTE | 2020-12-16 08:46 | PCM.SN.2 ---
- Free Text/Narrative Note: Post Operative Progress Note POD #3 Subjective: Doing well overall. Ambulating without difficulty. Lochia minimal. Voiding without difficulty. Passing flatus and has not had a bowel movement yet. Tolerating regular diet without nausea or vomiting. Pain improving and able to be well controlled with oral medications. Breast and bottlefeeding with minimal difficulty. Objective: Vitals: Vital Signs - 24 hr 12/15/12/15/20 12/16/20 15:20 19:59 04:10 Temperature 36.6 C 36.6 C 36.6 C Pulse, 64 97 62 Peripheral Respiratory 15 16 Rate Blood Pressure 111/78 124/82 111/78 O2 Sat by Pulse 98 98 99 Oximetry Physical Exam General: Alert and oriented, no acute distress Lungs: Clear to auscultation bilaterally Heart: Regular rate and rhythm Abdomen: Soft, minimal appropriate tenderness, non-distended, fundus midline, nontender and at the umbilicus Incision: Clean, dry and intact, no erythema, bleeding or drainage with Steri- Strips in place Extremities: Trace edema in bilateral lower extremities to mid shins, no calf tenderness bilaterally ASSESSMENT: 20-year-old female -0-0-1 s/p primary section POD #3 for arrest of dilation at 6 to 7 cm, complicated by ICU admission in postoperative state for first day after section due to hypotensive episodes with tachycardia and received 2 units PRBCs blood transfusion and rubella nonimmune status and should be offered MMR vaccine prior to discharge PLAN: Doing well Breast and bottlefeeding with some difficulty. Assist as needed Incision healing well. Continue to keep clean and dry. Lochia minimal. Continue to monitor for appropriate lochia. Continue routine post-operative care Plan for MMR vaccine to be offered prior to discharge Discharge home today Javy Craven MD 8:44 AM 12/16/2020
--- NOTE | 2020-12-16 09:05 | PCM.DCSUM1 ---
Discharge Summary - Hospital Course Free Text/Narrative:: - General Post-Op/Procedure Note Date of Surgery/Procedure: 12/13/20 Operative Procedure(s): primary section Findings: very prominent sacrum, viable male, 9#9oz, 1/7 APGARS at 1444. Pre Op Diagnosis: failure to progress Post-Op Diagnosis: Same Anesthesia Technique: Epidural Primary Surgeon: Farida Klein Anesthesia Provider: Jacquie Armas Liner Worker: Yolette Olivarez Fluid Replacement, Intraop: 2,000 Output, Urine Amount: 200 EBL in mLs: 1,200 Complications: None Condition: Good Free Text/Narrative:: The patient was taken to the operating room where epidural anesthesia was dosed to surgical levels without difficulty. The patient was prepped and draped in the usual sterile fashion in the dorsal supine position with a leftward tilt. A Pfannenstiel skin incision was made with the scalpel and carried through to the underlying layer of fascia. The fascia was incised in the midline and extended laterally using Maldonado scissors. Kiah clamps were used to elevate the superior aspect of the fascial incision, which was elevated, and the underlying rectus muscles were dissected off bluntly and using Maldonado scissors. Attention was then turned to the inferior aspect of the fascial incision, which in similar fashion was grasped with Kiah clamps, elevated, and the underlying rectus muscles were dissected off bluntly and using the maldonado. The rectus muscles were dissected in the midline. The peritoneum was entered bluntly; this incision was extended superiorly and inferiorly with good visualization of the bladder. The bladder blade was inserted. The vesicouterine peritoneum was identified and entered sharply using Metzenbaum scissors. This incision was extended laterally and the bladder flap was created digitally. The bladder blade was reinserted. The lower uterine segment was incised in a transverse fashion using the scalpel and with digital traction. Clear fluid was noted. The was subsequently delivered by flexing the head to the incision. Body and shoulders followed without difficulty. The cord was clamped and cut. The infant was subsequently handed to the awaiting sap fico architect whose presence had been requested.. The placenta was delivered spontaneously intact with a three-vessel cord noted. The uterus was exteriorized and cleared of all clots and debris. It was very boggy. The uterine incision was repaired in 2 layers using 0 monocryl. Hemostasis was visualized. Hemostasis was visualized bilaterally. Significant boggy uterus. Methergine given at 1453, cytotec at 1556, hemabate at 1559, and TXA 1600. The uterus was returned to the abdomen. Attempt to place bakri from below by Dr. Olivarez unsuccessful related to very narrow pelvic arch. The uterine incision was reexamined and it was noted to be hemostatic. The pelvis was copiously irrigated. The fascia was closed with 1 PDS suture, and the skin was closed with 3-0 monocryl. Sponge, lap, and instrument counts were correct x2. The patient was stable at the completion of the procedure and was subsequently transferred to the recovery room in [facility]. Diagnosis: Stroke: No - Discharge Data Discharge Date: 12/16/20 Discharge Disposition: Home, Self-Care 01 Condition: Good - Referral to Home Health Primary Care Physician: PCP None - Discharge Diagnosis/Problem(s) (1) 40 weeks gestation of SNOMED Code(s): 37291196 ICD Code: Z3A.40 - 40 WEEKS GESTATION OF Status: Acute Current Visit: Yes (2) Rubella non-immune status, antepartum SNOMED Code(s): 195482068 ICD Code: O99.891 - OTH DISEASES AND CONDITIONS COMPLICATING ; Z28.3 - UNDERIMMUNIZATION STATUS Status: Acute Current Visit: Yes (3) Non-reactive NST (non-stress test) SNOMED Code(s): 649492581, 419925349 ICD Code: O28.8 - OTHER ABNORMAL FINDINGS ON SCREENING OF MOTHER Status: Acute Current Visit: Yes - Patient Summary/Data Operative Procedure(s) Performed: primary section Complications: Maternal hypotension and tachycardia in the PACU. Patient given 2 units PRBC blood transfusion due to suspected symptoms due to acute blood loss anemia and hemorrhage during section. Consults: environmental services assistant Hospital Course: Bre Hartman was admitted for induction of labor in the setting of nonreactive NST with tachycardia. On admission her cervix was dilated to 1-2 cm. She was GBS negative.she had placement of an 18 [place] Prescott catheter with direct visualization and use of ring forceps. She was given Cytotec 25 mcg vaginally for induction. The Prescott bulb came out spontaneously after being in place for approximately 5 hours and she was given pitocin for augmentation. She underwent artificial rupture membranes with return of small amount of clear fluid. In the sales service route manager of HD #2 she had larger amount of fluid that came out after suspected spontaneous rupture membranes with clear fluid. She was given an epidural for anesthesia. She had an IUPC placed to monitor her contractions more closely in the morning of HD #2. She made minimal progress and had arrest of dilation at 6 to 7 cm and was recommended for her to have section for arrest of dilation. Consents were signed. She was taken back to the OR and given additional dosing through her epidural for anesthesia. She was given Ancef and azithromycin IV for antibiotic prophylaxis. She was prepped and draped in the normal fashion. On 12/13/2020 she had a normal delivery of a [live] male infant at 14:44. Apgars of 1 and 7. Weight of 4350 g (9 pounds 9.4 ounces). She was closed in a normal fashion. During the procedure the uterus was noted to be very boggy and she was given Methergine, Cytotec, Hemabate and tranexamic acid to help with bleeding. Attempt was made to place a Bakri balloon but this was unsuccessful. Please see the operative report for full details. Her post operative course was complicated by maternal hypotension and tachycardia in the PACU. She was transferred to the ICU in overall stable state and was given 2 units PRBC blood transfusion due to suspected acute blood loss anemia leading to her symptoms.on POD #1 she was transferred from the ICU to the unit. Her pain was well controlled and she had minimal lochia. She was ambulating, tolerating a regular diet and voiding normally. She was passing flatus and has not had a bowel movement. She was breast and bottle feeding without difficulty. She was afebrile and her hematocrit was 31.1 on POD #1 status post 2 units PRBCs blood transfusion. She desired to be discharged home on the morning of POD #3. Her blood type is O+. Patient was offered MMR vaccine prior to discharge. Patient was seen by social service technician and given additional information for support after discharge. - Patient Instructions Diet: Regular Diet as Tolerated Activity: Apply Ice, As Tolerated, No Lifting Over 20 Pounds Activity, Other: Nothing in the vagina for 6 weeks Driving: Do Not Drive (While taking narcotic medications are having significant pain.) Showering/Bathing: May Shower Wound/Incision Care: Keep Operative Site/Wound Site Clean and Dry Notify Provider of: Fever, Increased Pain, Swelling and Redness, Drainage, Nausea and/or Vomiting Other/Special Instructions: Please contact your physician's office if you note any bleeding or pus coming from the abdominal incision. Please contact your physician's office if you have heavy vaginal bleeding enough to soak a pad in less than an hour for several hours. Monitor for any signs of an infection in the breasts with severe pain or redness of the breast. - Discharge Plan *PRESCRIPTION DRUG MONITORING PROGRAM REVIEWED*: Yes *COPY OF PRESCRIPTION DRUG MONITORING REPORT IN PATIENT RENETTA: No Prescriptions/Med Rec: Acetaminophen/oxyCODONE [Percocet 325-5 MG] 1 - 2 tab PO Q6H PRN #30 tablet PRN Reason: Pain Home Medications: Home Meds Pnv No.95/Ferrous Fum/Folic AC [ Vitamin Tablet] 1 each PO DAILY 12/12/20 [History] Acetaminophen/oxyCODONE [Percocet 325-5 MG] 1 - 2 tab PO Q6H PRN #30 tablet 12/16/20 [Rx] Docusate Sodium [Colace] 100 mg PO BID PRN cap 12/16/20 [Rx] Ibuprofen [Motrin] 600 mg PO Q6H PRN tablet 12/16/20 [Rx] Patient Handouts: Delivery, Care After Referrals: Javy Craven MD [Physician] - (Follow-up in 2 weeks for routine postoperative visit or earlier as needed.) - Discharge Summary/Plan Comment DC Time >30 min.: No - Patient Data Vitals - Most Recent: Last Vital Signs Temp 36.6 C 12/16/20 04:10 Pulse 62 12/16/20 04:10 Resp 16 12/16/20 04:10 BP 111/78 12/16/20 04:10 Pulse Ox 99 12/16/20 04:10 Weight - Most Recent: 72.575 kg Med Orders - Current: Current Medications Diphenhydramine HCl (Diphenhydramine 50 Mg/Ml Sdv) 25 mg IVPUSH Q6H PRN PRN Reason: Itching or Nausea Docusate Sodium (Docusate Sodium 100 Mg Cap) 100 mg PO BID PRN PRN Reason: Constipation Last Admin: 12/15/20 19:53 Dose: 100 mg Documented by: Ephedrine Sulfate (Ephedrine 50 Mg/Ml Sdv) 5 mg IVPUSH SEECOMMENT PRN PRN Reason: Other Ibuprofen (Ibuprofen 600 Mg Tab) 600 mg PO Q4H PRN PRN Reason: Pain Last Admin: 12/16/20 03:55 Dose: 600 mg Documented by: Naloxone HCl (Naloxone 0.4 Mg/Ml Sdv) 0.1 mg IVPUSH SEECOMMENT PRN PRN Reason: Respiratory Depression Oxycodone/Acetaminophen (Acetaminophen/Oxycodone 325-5 Mg Tab) 2 tab PO Q4H PRN PRN Reason: Pain (severe 7-10) Last Admin: 12/16/20 03:58 Dose: 2 tab Documented by: Oxycodone/Acetaminophen (Acetaminophen/Oxycodone 325-5 Mg Tab) 1 tab PO Q4H PRN PRN Reason: Pain (moderate 4-6) Prenat Multivit/Bandera/Iron/Folic Ac ( Multivitamin With Calcium/Folic Acid/Iron Tab) 1 each PO DAILY LUCINA Last Admin: 12/15/20 08:02 Dose: 1 each Documented by: Discontinued Medications Bupivacaine HCl (Bupivacaine 0.5% 30 Ml Sdv) Confirm Administered Dose 30 ml .ROUTE .STK-MED ONE Stop: 12/13/20 14:42 Last Admin: 12/13/20 14:39 Dose: 30 ml Documented by: Bupivacaine HCl (Bupivacaine 0.25% 10 Ml Sdv) 20 ml .ROUTE .STK-MED ONE Stop: 12/13/20 18:01 Carboprost Tromethamine (Carboprost Tromethamine 250 Mcg/1 Ml Amp) Confirm Administered Dose 250 mcg .ROUTE .STK-MED ONE Stop: 12/13/20 14:53 Last Admin: 12/13/20 14:59 Dose: 250 mcg Documented by: Cefazolin Sodium (Cefazolin 1 Gm Vial) Confirm Administered Dose 2 gm .ROUTE .STK-MED ONE Stop: 12/13/20 15:07 Cefazolin Sodium (Cefazolin 1 Gm Vial) Confirm Administered Dose 2 gm .ROUTE .STK-MED ONE Stop: 12/13/20 15:13 Citric Acid/Sodium Citrate (Citric Acid/Sodium Citrate Solution 30 Ml Cup) 30 ml PO ONETIME ONE Stop: 12/13/20 14:11 Last Admin: 12/13/20 14:22 Dose: 30 ml Documented by: Citric Acid/Sodium Citrate (Citric Acid/Sodium Citrate Solution 30 Ml Cup) Confirm Administered Dose 30 ml .ROUTE .Cruise Compare ONE Stop: 12/13/20 14:20 Last Admin: 12/14/20 08:32 Dose: Not Given Documented by: Diphenhydramine HCl (Diphenhydramine 50 Mg/Ml Sdv) 25 mg IVPUSH Q6H PRN PRN Reason: pruritis Diphenhydramine HCl (Diphenhydramine 50 Mg/Ml Sdv) 25 mg IVPUSH Q6H PRN PRN Reason: Pruritis Diphenhydramine HCl (Diphenhydramine 50 Mg/Ml Sdv) 25 mg IV ONETIME ONE Stop: 12/13/20 17:01 Last Admin: 12/13/20 17:59 Dose: 25 mg Documented by: Ephedrine Sulfate (Ephedrine 50 Mg/Ml Sdv) 5 mg IVPUSH ASDIRECTED PRN PRN Reason: Hypotension Fentanyl (Fentanyl 100 Mcg/2 Ml Sdv) 100 mcg EPIDUR Q3H PRN PRN Reason: Pain Last Admin: 12/13/20 12:57 Dose: 100 mcg Documented by: Fentanyl (Fentanyl 100 Mcg/2 Ml Sdv) Confirm Administered Dose 100 mcg .ROUTE .Cruise Compare ONE Stop: 12/13/20 15:13 Fentanyl (Fentanyl 100 Mcg/2 Ml Sdv) 50 mcg IVPUSH Q5M PRN PRN Reason: Pain Fentanyl/Bupivacaine HCl (Bupivacaine/Fentanyl/Ns 100 Ml Bag) 100 ml EPIDUR ASDIRECTED PRN PRN Reason: Pain Last Admin: 12/13/20 12:56 Dose: 100 ml Documented by: Lactated Ringer's (Ringers, Lactated) 1,000 mls @ 100 mls/hr IV ASDIRECTED LUCINA Last Admin: 12/13/20 08:08 Dose: 100 mls/hr Documented by: Oxytocin/Lactated Ringer's (Pitocin In Lr 10 Units/1,000 Ml) 10 unit in 1,000 mls @ 12 mls/hr IV TITRATE LUCINA; Protocol Last Titration: 12/13/20 11:01 Dose: 20 munits/min, 120 mls/hr Documented by: Oxytocin/Lactated Ringer's (Pitocin In Lr 20 Units/1,000 Ml) 20 unit in 1,000 mls @ 60 mls/hr IV TITRATE LUCINA; Protocol Azithromycin 500 mg/ Sodium (Chloride) 250 mls @ 250 mls/hr IV ONETIME ONE Stop: 12/13/20 15:01 Last Admin: 12/13/20 14:00 Dose: 250 mls/hr Documented by: Lactated Ringer's (Ringers, Lactated) 1,000 mls @ 125 mls/hr IV ASDIRECTED [facility] Cefazolin Sodium/Dextrose 2 gm (/ Premix) 50 mls @ 100 mls/hr IV ONETIME ONE Stop: 12/13/20 14:39 Last Admin: 12/14/20 08:31 Dose: Not Given Documented by: Lactated Ringer's (Ringers, Lactated) Confirm Administered Dose 2,000 mls @ as directed .ROUTE .STK-MED ONE Stop: 12/13/20 15:13 Lactated Ringer's (Ringers, Lactated) Confirm Administered Dose 1,000 mls @ as directed .ROUTE .STK-MED ONE Stop: 12/13/20 15:19 Tranexamic Acid 1,000 mg/ (Sodium Chloride) 110 mls @ 13.75 mls/hr IV ONETIME ONE Stop: 12/14/20 00:14 Last Admin: 12/13/20 17:43 Dose: 13.75 mls/hr Documented by: Dextrose/Lactated Ringer's (Dextrose 5%-Lactated Ringers) 1,000 mls @ 125 mls/hr IV ASDIRECTED LUCINA Stop: 12/14/20 00:59 Last Admin: 12/13/20 18:46 Dose: 125 mls/hr Documented by: Sodium Chloride (Normal Saline) 1,000 mls @ 125 mls/hr IV ASDIRECTED LUCINA Last Admin: 12/14/20 02:24 Dose: 125 mls/hr Documented by: Sodium Chloride (Normal Saline) 250 mls @ 25 mls/hr IV ASDIRECTED LUCINA Last Admin: 12/13/20 18:15 Dose: 25 mls/hr Documented by: Lidocaine/Epinephrine (Lidocaine 2% With Epinephrine 1:200,000 20 Ml Sdv) Confirm Administered Dose 20 ml .ROUTE .STK-MED ONE Stop: 12/13/20 15:13 Lidocaine/Epinephrine (Lidocaine 1.5% With Epinephrine 1:200,000 5 Ml Amp) 5 ml .ROUTE .STK-MED ONE Stop: 12/13/20 18:01 Meperidine HCl (Meperidine 50 Mg/Ml Vial) 25 mg IVPUSH ONETIME ONE Stop: 12/13/20 16:08 Last Admin: 12/13/20 16:13 Dose: 25 mg Documented by: Methylergonovine Maleate (Methylergonovine 0.2 Mg/1 Ml Amp) Confirm Administered Dose 0.2 mg .ROUTE .STK-MED ONE Stop: 12/13/20 14:53 Last Admin: 12/13/20 14:53 Dose: 0.2 mg Documented by: Metoclopramide HCl (Metoclopramide 10 Mg/2 Ml Sdv) 10 mg IVPUSH ONETIME ONE Stop: 12/13/20 14:11 Last Admin: 12/13/20 14:22 Dose: 10 mg Documented by: Metoclopramide HCl (Metoclopramide 10 Mg/2 Ml Sdv) Confirm Administered Dose 10 mg .ROUTE .STK-MED ONE Stop: 12/13/20 14:20 Last Admin: 12/14/20 08:32 Dose: Not Given Documented by: Midazolam HCl (Midazolam 1 Mg/Ml 2 Ml Sdv) Confirm Administered Dose 2 mg .ROUTE .STK-MED ONE Stop: 12/13/20 15:00 Miscellaneous Medication (Phenylephrine Hcl In 0.9% Nacl 1 Mg/10 Ml Syringe) Confirm Administered Dose 2 mg .ROUTE .STK-MED ONE Stop: 12/13/20 15:00 Misoprostol (Misoprostol 25 Mcg (1/4 Of 100 Mcg) Tab) 25 mcg VAG Q4H PRN PRN Reason: cervical ripening Last Admin: 12/12/20 17:02 Dose: 25 mcg Documented by: Misoprostol (Misoprostol 200 Mcg Tab) 600 mcg .ROUTE .STK-MED ONE Stop: 12/13/20 15:01 Morphine Sulfate (Morphine Pf 10 Mg/10 Ml Sdv) Confirm Administered Dose 10 mg .ROUTE .STK-MED ONE Stop: 12/13/20 15:13 Nalbuphine HCl (Nalbuphine 10 Mg/1 Ml Vial) 10 mg IVPUSH Q2H PRN PRN Reason: Pain Last Admin: 12/13/20 04:17 Dose: 10 mg Documented by: Ondansetron HCl (Ondansetron 4 Mg/2 Ml Sdv) Confirm Administered Dose 4 mg .ROUTE .STK-MED ONE Stop: 12/13/20 15:13 Ondansetron HCl (Ondansetron 4 Mg/2 Ml Sdv) 4 mg IVPUSH ONETIME PRN PRN Reason: Nausea/Vomiting Oxytocin (Oxytocin 10 Units/1 Ml Sdv) Confirm Administered Dose 20 unit .ROUTE .STK-MED ONE Stop: 12/13/20 15:13 Sodium Bicarbonate (Sodium Bicarbonate 8.4% 50 Meq/50 Ml Sdv) Confirm Administered Dose 50 meq .ROUTE .STK-MED ONE Stop: 12/13/20 15:13 Sodium Chloride (Sodium Chloride 0.9% 10 Ml Syringe) 10 ml FLUSH ASDIRECTED PRN PRN Reason: Keep Vein Open Sodium Chloride (Sodium Chloride 0.9% 10 Ml Syringe) 10 ml FLUSH ASDIRECTED PRN PRN Reason: Keep Vein Open Tranexamic Acid (Tranexamic Acid 1,000 Mg/10 Ml Amp) Confirm Administered Dose 1,000 mg .ROUTE .STetechies.in-MED ONE Stop: 12/13/20 14:58 Last Admin: 12/13/20 15:02 Dose: 1,000 mg Documented by: Tranexamic Acid (Tranexamic Acid 1,000 Mg/10 Ml Amp) Confirm Administered Dose 1,000 mg .ROUTE .STetechies.in-MED ONE Stop: 12/13/20 15:42 Last Admin: 12/14/20 08:32 Dose: Not Given Documented by:
[2020-12-16] MEDS: Docusate Sodium 100 MG Cap PO PRN (10:53)
[2020-12-16] MEDS: Prenatal Multivitamin with Calcium/Folic Acid/Iron Tab PO SCH (10:53)
[2020-12-16] MEDS ORDERED: Measles, Mumps & Rubella Vaccine 0.5 ML SDV SUBCUT ONE (11:30)
== END 2020-12-16 11:50 | disposition home or self-care (01) | DRG 787 ==
LOC: JD.OB 15:32 → OBSVTOIN 12-13 14:10 → JD.OB 12-13 14:44 → JD.ICU 12-13 16:52 → JD.OB 12-14 15:59
PROVIDERS: ADMIT Obstetrics & Gynecology; ATTEND Obstetrics & Gynecology
PROC: 10D00Z1 Extraction of Products of Conception, Low, Open Approach (ICD-10-PCS; principal; 2020-12-13)
PROC: 10907ZC Drainage of Amniotic Fluid, Therapeutic from Products of Conception, Via Natural or Artificial Opening (ICD-10-PCS; 2020-12-13)
PROC: 10H07YZ Insertion of Other Device into Products of Conception, Via Natural or Artificial Opening (ICD-10-PCS; 2020-12-13)
PROC: 3E0P7VZ Introduction of Hormone into Female Reproductive, Via Natural or Artificial Opening (ICD-10-PCS; 2020-12-13)
DX: O28.8 Other abnormal findings on antenatal screening of mother (principal); D62 Acute posthemorrhagic anemia; O76 Abnormality in fetal heart rate and rhythm complicating labor and delivery; O99.02 Anemia complicating childbirth; O26.53 Maternal hypotension syndrome, third trimester; Z37.0 Single live birth; Z3A.40 40 weeks gestation of pregnancy; O99.62 Diseases of the digestive system complicating childbirth; K21.9 Gastro-esophageal reflux disease without esophagitis
CPT/HCPCS: 36415; 36430; 51702; 59025; 80306; 85025; 86592; 86803; 86850; 86900; 86901; 86922; 90471; 90707; A9270-GY; J0456; J0690; J1200; J2175; J2210; J2250; J2270; J2300; J2370; J2405; J2590; J2765; J3010; J3490; J7030; J7050; J7120; J7121; P9016; U0002

== ENCOUNTER 2022-03-20 05:06 | Inpatient (IN) | payer MEDICAID ==
[~2022-03-20 05:06] MED LIST: Lactated Ringers 1,000 ML IV SCH; Lidocaine 1%/Sod Bicarbonate in NS 8.4% 1 ML Syringe IDERM PRN; Oxytocin/Lactated Ringers 10 UNIT/1,000 ML BAG IV SCH; Sodium Chloride 0.9% 10 ML Syringe FLUSH PRN; Sodium Chloride 0.9% 10 ML Syringe FLUSH SCH; ceFAZolin 2 GM in Sodium Chloride 0.9% 50 ML IV ONE
[2022-03-20] MEDS ORDERED: Metoclopramide 10 MG/2 ML SDV IVPUSH ONE (06:00)
[2022-03-20] MEDS ORDERED: Citric Acid/Sodium Citrate Solution 30 ML Cup PO ONE (06:00)
[2022-03-20] MEDS ORDERED: Bupivacaine 0.5% 30 ML SDV ONE (07:17)
[2022-03-20] MEDS ORDERED: Morphine PF 10 MG/10 ML SDV ONE (07:17)
[2022-03-20] MEDS ORDERED: Oxytocin 10 Units/1 ML SDV ONE (07:18)
[2022-03-20] MEDS ORDERED: Lactated Ringers 1,000 ML ONE ×2 (07:19)
[2022-03-20] MEDS ORDERED: ceFAZolin 2 GM Vial ONE (07:19)
[2022-03-20] MEDS ORDERED: Ondansetron 4 MG/2 ML SDV ONE (07:21)
[2022-03-20] MEDS ORDERED: diphenhydrAMINE 50 MG/ML SDV IVPUSH PRN ×2 (07:29→11:30)
[2022-03-20] MEDS ORDERED: Ondansetron 4 MG/2 ML SDV IVPUSH PRN (07:29)
[2022-03-20] MEDS ORDERED: fentaNYL 100 MCG/2 ML SDV IVPUSH PRN (07:29)
[2022-03-20] MEDS ORDERED: Ketamine 500 mg/10 ML MDV ONE (08:30)
[2022-03-20] MEDS ORDERED: Ketorolac 30 MG/ML SDV ONE (08:31)
[2022-03-20] MEDS ORDERED: Sodium Chloride 0.9% 10 ML Syringe FLUSH SCH (09:00)
[2022-03-20] MEDS ORDERED: ePHEDrine 50 MG/ML SDV IVPUSH PRN (11:30)
[2022-03-20] MEDS ORDERED: Oxytocin/Lactated Ringers 10 UNIT/1,000 ML BAG IV SCH (11:30)
[2022-03-20] MEDS ORDERED: Dextrose 5%-Lactated Ringers 1,000 ML IV SCH (11:30)
[2022-03-20] MEDS ORDERED: Magnesium Hydroxide 400 MG/5 ML Susp 30 ML Cup PO PRN (11:30)
[2022-03-20] MEDS ORDERED: Naloxone 0.4 MG/ML SDV IVPUSH PRN (11:30)
[2022-03-20] MEDS ORDERED: Acetaminophen/oxyCODONE 325-5 MG Tab PO PRN (11:30)
[2022-03-20] MEDS: Docusate Sodium 100 MG Cap PO SCH ×2 (11:36→20:53)
[2022-03-20] MEDS ORDERED: Lactated Ringers 1,000 ML IV ONE (13:30)
[2022-03-20] MEDS: Ketorolac 30 MG/ML SDV IVPUSH SCH ×2 (15:36→20:53)
[2022-03-20] MEDS: Acetaminophen/oxyCODONE 325-5 MG Tab PO PRN (21:01)
[2022-03-21] MEDS: Ketorolac 30 MG/ML SDV IVPUSH SCH (03:04)
[2022-03-21] MEDS: Acetaminophen/oxyCODONE 325-5 MG Tab PO PRN ×3 (03:05→22:38)
[2022-03-21] MEDS ORDERED: Prenatal Multivitamin with Calcium/Folic Acid/Iron Tab PO SCH (09:00)
[2022-03-21] MEDS: Docusate Sodium 100 MG Cap PO SCH ×2 (09:41→21:27)
[2022-03-21] MEDS: Ibuprofen 600 MG Tab PO PRN ×2 (09:41→21:10)
[2022-03-22] MEDS: Acetaminophen/oxyCODONE 325-5 MG Tab PO PRN (05:59)
== END 2022-03-22 11:30 | disposition home or self-care (01) | DRG 788 ==
LOC: JD.OB 05:06 → UNDOADMIN 05:06 → JD.OB 13:43
PROVIDERS: ADMIT Obstetrics & Gynecology; ATTEND Obstetrics & Gynecology
PROC: 10D00Z1 Extraction of Products of Conception, Low, Open Approach (ICD-10-PCS; principal; 2022-03-20)
DX: O34.211 Maternal care for low transverse scar from previous cesarean delivery (principal); Z37.0 Single live birth; Z3A.38 38 weeks gestation of pregnancy; O99.62 Diseases of the digestive system complicating childbirth; K21.9 Gastro-esophageal reflux disease without esophagitis; O36.1930 Maternal care for other isoimmunization, third trimester, not applicable or unspecified; O32.1XX0 Maternal care for breech presentation, not applicable or unspecified
CPT/HCPCS: 01961; 36415; 59025; 85025; 86592; A9270-GY; J0690; J1885; J2274; J2405; J2590; J2765; J3490; J7120; J7121